=== PATIENT | male | born 1960 | race African-American/Black ===

== ENCOUNTER → 2020-12-07 11:07 | Outpatient (BNVA) | payer OTHER, SELFPAY | PROVIDERS: PCP Physician Assistant; Visit Provider Nurse Practitioner Family | DX: I21.4 Non-ST elevation (NSTEMI) myocardial infarction (principal); I25.10 Atherosclerotic heart disease of native coronary artery without angina pectoris; E11.9 Type 2 diabetes mellitus without complications; E78.5 Hyperlipidemia, unspecified; Z98.890 Other specified postprocedural states | CPT/HCPCS: 99212 ==

== ENCOUNTER → 2021-02-19 07:49 | Outpatient (REF) | payer OTHER, SELFPAY ==
--- NOTE | 2021-02-19 07:53 | CA_ITS ---
Transthoracic Echocardiogram Patient (Last, First, Middle): Pérez Yang, Gender: Male Date of : 1960 Age: 60 Procedure Date: 02/19/2021 Procedure Type: Transthoracic Echocardiogram Location: OP Height: 165.1 cm Weight: 111.13 kg BSA: 2.16 m2 Heart Rate: bpm BP: 120 / 66 mmHg Risk Engineer: MAYA Referring MD: Soni Grigsby [employer] Symptoms: Z98.890 - Other specified postprocedural states Study Quality: Fair ECG Rhythm: Sinus Conclusions: - The left ventricular systolic function is normal. The visually estimated ejection fraction is between 60-65%. - Possible mild hypokinesis in basal inferior wall. - No obvious valvular pathology seen on this study. Findings Left Ventricle Normal left ventricular cavity size. There is mildly increased left ventricular wall thickness. The left ventricular systolic function is normal. The visually estimated ejection fraction is between 60-65%. Diastolic function is normal for age. Possible mild hypokinesis in basal inferior wall. Right Ventricle Normal right ventricular cavity size. There is low normal right ventricular systolic function. Atria Both atria are normal in size. Aortic Valve There is a normal trileaflet aortic valve. There is no aortic valve stenosis. There is no aortic valve regurgitation. Mitral Valve The mitral valve appears normal. There is trace mitral valve regurgitation. There is no mitral valve stenosis. Pulmonic Valve The pulmonic valve was not well visualized. Tricuspid Valve Normal tricuspid valve structure. There is trace tricuspid valve regurgitation. The pulmonary artery systolic pressure is normal. Great Vessels The aortic annulus, sinuses of valsalva, asc aorta, and aortic arch are normal in size. Venous The inferior vena cava is normal in size and collapses greater than 50% with inspiration. Pericardium/Pleural There is no evidence of pericardial effusion. Prior Study Comparison No prior study available for comparison. Recommendations, Care & Conclusions No obvious valvular pathology seen on this study. Measurements 2D Linear Measurements RVIDd: 2.77 RVIDd Index: 1.28 IVSd: 1.11 0.6-0.9/0.6-1.0 cm LVIDd: 4.71 3.9-5.3/4.2-5.9 cm LVIDd Index: 2.18 2.4-3.2/2.2-3.1 cm/m2 LVIDs: 3.28 2.0-3.6 cm LVPWd: 1.42 0.7-1.1 cm Ao Root: 3.40 2.1-3.5 cm LA Diam: 3.60 2.7-3.8/3.0-4.0 cm LAIDs Index: 1.67 1.5-2.3 cm/m2 LV Mass: 286.02 67-162/88-224 g LV Mass Index: 132.42 43-95/49-115 g/m2 LVOT Diam: 2.10 3.0+(-)1.3 cm 2D Systolic Function EF 4C: 53.50 >55% EF 2C: 68.40 >55% EF BiP: 60.20 >55% Mitral Valve MV Pk E: 0.79 MV PK A: 0.36 MV Decel Time: 225.00 E/A: 2.20 E'Lateral: 7.51 E'Medial: 7.72 E/E' Med: 10.20 E/E' Lat: 10.50 Aortic Valve AoV Pk Emmett: 1.22 AoV Mn Emmett: 0.91 AoV VTI: 0.29 AoV Pk Grad: 6.00 Aov Mn Grad: 4.00 DEJAH Cont.VTI: 2.24 LVOT LVOT Pk Emmett: 0.83 LVOT Mn Emmett: 0.63 LVOT VTI: 0.19 LVOT Pk Grad: 3.00 LVOT Mn Grad: 2.00 LVOT Diam: 2.10 LVOT Area: 3.46 Diastolic Function MV Pk E: 0.79 MV Pk A: 0.36 E/A: 2.20 E'Medial: 7.72 E/E' Med: 10.20 E' Laterial: 7.51 E/E' Lat: 10.50 Tricuspid Valve TR Pk Emmett: 2.37 TR Pk Grad: 22.00 RA Press: 3.00 RVSP: 25.00 Great Vessels Aorta Ao Root-2D: 3.40 2.0-3.7 cm Ao Asc: 3.10 2.1-3.4 cm Ao Arch: 3.10 Updated in Other Vendor System with Status of Final Chito Catalan MD electronically signed on 02/20/2021 3:14:51 PM with status of Final
== END ==
LOC: HO.CARD 07:49
PROVIDERS: PCP Physician Assistant; Visit Provider Nurse Practitioner Family
DX: I21.4 Non-ST elevation (NSTEMI) myocardial infarction (principal); I25.10 Atherosclerotic heart disease of native coronary artery without angina pectoris; Z98.890 Other specified postprocedural states
CPT/HCPCS: 93306

== ENCOUNTER 2025-08-21 15:21 | Emergency (ER) | payer OTHER, SELFPAY ==
--- NOTE | ~2025-08-21 | XR_ITS ---
EXAMINATION: XR CHEST CLINICAL INFORMATION: CP COMPARISON: None available. TECHNIQUE: PA and lateral views. FINDINGS: No consolidation, pleural effusion or pneumothorax. Cardiomediastinal silhouette size is normal. Multilevel thoracolumbar spondylosis. Patient's large body habitus. XR/XR chest 2V IMPRESSION: No acute airspace disease. Electronically signed by: Zac Van MD 08/21/2025 04:10 PM EST
--- NOTE | 2025-08-21 15:27 | ECG_ITS ---
Test Reason : CP Blood Pressure : */* mmHG Vent. Rate : 77 BPM Atrial Rate : 77 BPM P-R Int : 150 ms QRS Dur : 70 ms QT Int : 350 ms P-R-T Axes : 58 -26 50 degrees QTcB Int : 396 ms Normal sinus rhythm Normal ECG No previous ECGs available Referred By: Arin Cobb Electronically Signed By: Issac Lenz
[2025-08-21 15:36] VITALS: BP 158/70; PULSE 82; RESP 18; TEMP 36.4; O2SAT 96; BMI 39.8
--- NOTE | 2025-08-21 15:36 | ED.CHESTPAIN ---
HPI - Chest Pain General Chief Complaint: Chest Pain Stated Complaint: CP Time Seen by Provider: 08/21/25 20:29 Source: patient Mode of arrival: ambulatory Limitations: no limitations History of Present Illness ED Provider: DR. Calvert HPI narrative: 65-year-old male history of CAD s/p PCI in 2020 came in for evaluation of mid chest pain started around 16:00 while he was talking to his neighbor, is concern of coronary artery disease. History of HTN, DM, HLD, CAD, active smoking. Patient declined any recent travel, no prolonged immobilization, no lower extremity swelling or tenderness, no history of PE or DVT. Related Data Home Medications ?Medication ?Instructions ?Recorded ?Confirmed aspirin 81 mg tablet,delayed mg PO 12/07/20 12/07/20 release atorvastatin 80 mg tablet 80 mg PO DAILY 12/07/20 12/07/20 carvedilol 3.125 mg tablet 3.125 mg PO BID 12/07/20 12/07/20 lisinopril 5 mg tablet 5 mg PO DAILY 12/07/20 12/07/20 metformin 750 mg tablet,extended 750 mg PO DAILY 12/07/20 12/07/20 release 24 hr nicotine 21 mg/24 hr daily 1 patch topical DAILY 12/07/20 12/07/20 transdermal patch Previous Rx's ?Medication ?Instructions ?Recorded ticagrelor 90 mg tablet 90 mg PO BID 90 days #180 tabs 02/26/21 Allergies Allergy/AdvReac Type Severity Reaction Status Date / Time No Known Allergies Allergy Verified 08/21/25 15:38 Review of Systems Review of Systems: All other systems are reviewed and are negative Constitutional: Reports as per HPI and Reports no additional constitutional complaints Eyes: Reports as per HPI and Reports no additional eye complaints Reports system reviewed and no additional complaints, except as documented Cardiovascular: Reports as per HPI and Reports no additional cardiovascular complaints Respiratory: Reports as per HPI and Reports no additional respiratory complaints Gastrointestinal: Reports as per HPI and Reports no additional gastrointestinal complaints Genitourinary: Reports no additional female genitourinary complaints Musculoskeletal: Reports no additional musculoskeletal complaints Skin/Breast: Reports system reviewed and no additional complaints, except as docu Psychiatric: Reports no additional psychiatric complaints Endocrine: Reports no additional endocrine complaints Hematologic/Lymphatic: Reports no additional hematologic/lymphatic complaints Allergic/Immunologic: Reports no additional allergic/immunologic complaints Reports system reviewed and no additional complaints, except as documented and Reports Abnormal speech present [facility] Past Medical History Medical History Smoking HLD (hyperlipidemia) Diabetes NSTEMI (non-ST elevated myocardial infarction) CAD (coronary artery disease) Surgical History S/P cardiac cath Social History Social History Advance Directives: No Advance Directives Information Provided: Yes Physical Exam Vital Signs: Vital Signs: Last Vital Signs Temp 97.6 F 08/21/25 15:36 Pulse 82 08/21/25 15:36 Resp 18 08/21/25 15:36 BP 158/70 H 08/21/25 15:36 Pulse Ox 96 08/21/25 15:36 O2 Del Method Room Air 08/21/25 15:36 BMI result Body Mass Index 39.8 Vital signs have been reviewed and appear to be correct. Blood pressure elevated. Heart rate normal. Respiratory rate normal. Temperature normal. Oxygen saturation normal. Appearance: Alert. Oriented X3. No acute distress. Head: Normal external exam. Normocephalic. Atraumatic. No Schaefer signs noted. No raccoon eyes noted Eyes: PERRLA. EOMI. Conjunctiva and sclera normal. Eyelids normal. ENT: TM's Normal. Pharynx normal. Uvula midline. Moist mucous membranes. No trismus noted. No drooling noted. No muffled voice noted. Neck: Normal inspection. Neck supple. FROM. No adenopathy. Thyroid Normal. No meningeal signs. No neck mass noted. CVS: Normal heart rate and rhythm. Heart sound normal. No murmurs noted. Pulses normal throughout. Respiratory: No respiratory distress. Painless inspiration. Breath sounds normal. No wheezes/rales/rhonchi noted. Chest nontender. No accessory muscle usage noted or decreased air movement noted. Abdomen: Soft and nontender. Bowel sounds normal in all 4 quadrants. No distention noted. No organomegaly noted. No visible injury noted. Back: No CVA tenderness. Full range of motion noted. Skin: Skin warm and dry. Normal skin color. Normal skin turgor. No rashes/lesions/lacerations noted. Extremities: No lower extremity edema. Extremities exhibit normal range of motion. Extremities nontender. Neuro: Oriented X 3. Cranial nerve exam: II-XII are grossly intact No motor deficit. No sensory deficit. Reflexes normal. Course Course Course Narrative: This is an RME: Additional HPI, ROS, PE not included below will be deferred to primary provider. RME assessment and note performed by: Arin Cobb PA-C This is a [id number]-male, hx of HLD, NSTEMI s/p cadiac cath with stenting in 2020, HLD, diabetes, who presents to the ER with a complaint of midsternal chest pain x several hours. Noticed pain suddenly, sharp/pressure started this afternoon. Plan: Labs, EKG, CXR, further ER eval needed Reevaluation(s) Reevaluation #1: Noncardiac chest pain, troponin is negative x2, no risk for pulmonary embolism, now is chest pain-free. Will reassure, instruct to follow-up with PCP. Time: 20:40 Medical Decision Making Differential Diagnosis Differential Diagnoses: The differential diagnosis associated with the presentation includes (CAD, ACS, pneumonia, pneumothorax, pleural effusion, pulmonary embolism, electrolyte derangement, myofascial muscle pain, costochondritis.) Admission/Observation Consideration of admission/observation: Escalation of care including admission/observation considered Lab Data MDM Lab Attestation statement: I reviewed the patient's lab results. 08/21/25 16:58 08/21/25 16:59 Labs: Lab Results 08/21/25 08/21/25 08/21/25 Range/Units 16:58 16:59 20:02 WBC 9.0 (4.8-10.8) X10*3/uL RBC 5.14 (4.60-5.80) X10*6/uL Hgb 14.5 (14.0-18.0) g/dl Hct 45.1 (42.0-52.0) % MCV 87.7 (80.0-98.0) fL MCH 28.2 (27.0-33.0) pg MCHC 32.2 (31.0-36.0) g/dl RDW 13.3 (11.0-16.0) % Plt Count 218 (160-400) X10*3/uL MPV 9.2 L (9.4-12.4) fL Immature Gran % (Auto) 0.2 (0.0-0.4) % Neut % (Auto) 55.3 (45-73) % Lymph % (Auto) 30.8 (20-40) % Laurens % (Auto) 7.7 (2-11) % Eos % (Auto) 5.1 H (0-4) % Baso % (Auto) 0.9 (0-2) % Lymph # (Auto) 2.8 (1.2-4.9) X10*3/uL Laurens # (Auto) 0.7 (0.1-1.2) X10*3/uL Eos # (Auto) 0.5 H (0.0-0.4) X10*3/uL Baso # (Auto) 0.1 (0.0-0.2) X10*3/uL Abs Immat Gran (auto) 0.02 (0.00-0.03) X10*3/uL Absolute Neuts (auto) 5.0 (2.0-8.3) x10*3/uL Absolute Nucleated RBC 0.000 (0.0-0.012) X10*3/uL Nucleated RBC % (auto) 0.0 (0.0-0.2) /100WBC Sodium 136 (135-145) mmol/L Potassium 4.5 (3.3-5.1) mmol/L Chloride 105 (96-108) mmol/L Carbon Dioxide 26 (22-29) mmol/L Anion Gap 10 L (12-20) BUN 13 (9-16) mg/dL Creatinine 1.12 (0.5-1.4) mg/dL Estim Creat Clear Calc 76.6 Estimated GFR > 60 Random Glucose 82 (60-115) mg/dL Calcium 9.0 (8.4-10.2) mg/dL Magnesium 2.3 (1.6-2.6) mg/dL Total Bilirubin 0.3 (0.0-1.0) mg/dL Direct Bilirubin 0.1 (0.0-0.5) mg/dL AST 26 (5-37) U/L ALT 28 (0-40) U/L Alkaline Phosphatase 89 (39-117) U/L Troponin I High Sens < 2.7 < 2.7 (<3.5-35.0) ng/L Total Protein 7.1 (6.5-8.0) g/dL Albumin 4.2 (3.5-5.0) g/dL Influenza Type A (PCR) NEGATIVE (Negative) Influenza Type B (PCR) NEGATIVE (Negative) RSV RNA Qual (PCR) NEGATIVE (Negative) SARS-CoV-2 RNA (RT-PCR) NEGATIVE (Negative) Independent Interpretation I performed an independent interpretation of an: Plain X-Ray (Chest: No acute airspace disease.) Radiology Impression Discussion of test interpretation with radiology: I have reviewed the radiologist's reading. Discharge Plan Discharge Clinical Impression: Atypical chest pain Patient Disposition: Home, Self-Care Instructions: Chest Pain (ED) Prescriptions: No Action ticagrelor 90 mg tablet 90 mg PO BID 90 Days Qty: 180 2RF lisinopril 5 mg tablet 5 mg PO DAILY carvedilol 3.125 mg tablet 3.125 mg PO BID aspirin 81 mg tablet,delayed release (DR/EC) PO atorvastatin 80 mg tablet 80 mg PO DAILY nicotine 21 mg/24 hr patch 24 hour 1 patch topical DAILY metformin 750 mg tablet extended release 24 hr 750 mg PO DAILY Referrals: Oh Cisneros PA [Primary Care Provider, Internal Medicine] Print Language: Azerbaijani
[2025-08-21 17:03] LABS: MANUAL DIFF FLAG NO
[2025-08-21 17:04] LABS: Hematocrit 45.1 % (42.0-52.0); Hemoglobin 14.5 g/dl (14.0-18.0); Imm Gran Abs Auto 0.02 X10*3/uL (0.00-0.03); Imm Gran Pct Auto 0.2 % (0.0-0.4); Lymphocytes Absolute Auto 2.8 X10*3/uL (1.2-4.9); Mean Corpuscular HGB Conc 32.2 g/dl (31.0-36.0); Mean Corpuscular Hemoglobin 28.2 pg (27.0-33.0); Mean Corpuscular Volume 87.7 fL (80.0-98.0); NRBC Abs Auto 0.000 X10*3/uL (0.0-0.012); NRBC Pct Auto 0.0 /100WBC (0.0-0.2); Platelet Count 218 X10*3/uL (160-400); Red Blood Count 5.14 X10*6/uL (4.60-5.80); White Blood Count 9.0 X10*3/uL (4.8-10.8)
[2025-08-21 17:20] LABS: Alanine Aminotransferase 28 U/L (0-40); Albumin Level 4.2 g/dL (3.5-5.0); Alkaline Phosphatase 89 U/L (39-117); Anion Gap 10 (12-20); Aspartate Amino Transferase 26 U/L (5-37); Blood Urea Nitrogen 13 mg/dL (9-16); Calcium 9.0 mg/dL (8.4-10.2); Carbon Dioxide 26 mmol/L (22-29); Chloride 105 mmol/L (96-108); Creatinine Clr Calc Pharmacy 76.6; Estimated Glomerular Filt Rate > 60; Magnesium 2.3 mg/dL (1.6-2.6); Potassium 4.5 mmol/L (3.3-5.1); Sodium 136 mmol/L (135-145); Total Protein 7.1 g/dL (6.5-8.0)
[2025-08-21 17:28] LABS: Troponin-I High Sensitivity < 2.7 ng/L (<3.5-35.0)
[2025-08-21 17:40] LABS: Resp Syncy Virus RNA Qual PCR NEGATIVE (Negative); SARS COV2 PCR INHOUSE NEGATIVE (Negative)
--- OUTSIDE RECORDS SUMMARY | 2025-08-21 20:22 | XMS_ITS | Clinical Summary ---
Author Organization [facility] Address [address] [address] Phone Care Team Providers Care Tc Operator Name Role Phone Oh Esposito Primary Care Provider [phone] Allergies Active Allergy Reactions Criticality Noted Date Comments Tomato 11/12/2020 Medications albuterol 90 mcg/actuation inhaler Inhale 2 puffs into the lungs 2 (two) times a day as needed for wheezing. Active atorvastatin (LIPITOR) 40 MG tablet Take 40 mg by mouth daily. Active capsaicin (CAPZASIN-HP) 0.1 % Crea Apply 1 application topically 3 (three) times a day. Active metFORMIN (GLUCOPHAGE-XR) 750 MG 24 hr tablet Take 750 mg by mouth daily with dinner. Active nicotine (NICODERM CQ) 21 mg/[address] 1 patch onto the skin daily. Active nicotine polacrilex (NICORETTE) [address] 4 mg inside cheek every 4 (four) hours as needed for smoking cessation. Active diazePAM (VALIUM) 5 MG tablet Take 1 tablet (5 mg total) by mouth every 6 (six) hours as needed for anxiety. 12 tablet Active Social History Tobacco Use Types Packs/Day Years Used Date Smoking Tobacco: Some Days Smokeless Tobacco: Current Alcohol Use Standard Drinks/Week Comments Not Currently 1 (1 standard drink = 0.6 oz pur e alcohol) Education Answer Date Recorded Are you interested in more education? Not on david e 12/30/2022 Are you concerned about learning? Not on file 12/30/2022 No 12/30/2022 No 12/30/2022 Digital Access Answer Date Recorded No 01/28/2023 No 01/28/2023 Reliable internet access at home? Not on file 01/28/2023 Device with a working camera? Not on file Intimate Partner Violence Answer Date R ecorded Are you denied basic needs s uch as food, clothing, or medical care? No 05/05/2024 In the past 12 months have y ou been in a relationship with a person who hurts, threatens, or tries to control you? No 05/05/2024 Are you denied basic needs s uch as food, clothing, or medical care? No 05/05/2024 In the past 12 months have y ou been in a relationship with a person who hurts, threatens, or tries to control you? No 05/05/2024 Sex and Gender Information Value Date Recorded Sex Assigned at Not on file Legal Sex Male 9:45 PM EDT Gender Identity Male 11/12/2020 3:35 PM EST Sexual Orientation Not on file Last Filed Vital Signs Vital Sign Reading Time Taken Comments Blood Pressure 120/80 05/05/2024 3:23 PM EDT Pulse 84 05/05/2024 3:23 PM EDT Temperature 36.4 C (97.5 F) 05/05/2024 3:23 PM EDT Respiratory Rate 16 05/05/2024 3:23 PM EDT Oxygen Saturation 98% 05/05/2024 3:23 PM EDT Inhaled Oxygen Concentration - - Weight 116.6 kg (257 lb) 05/05/2024 11:49 AM EDT Height 165.1 cm (5' 5 ) 05/05/2024 11:49 AM EDT Body Mass Index 42.77 05/05/2024 11:49 AM EDT Plan of Treatment Health Maintenance Due Date Last Done Comments Adult Td,Tdap Booster 1960 LIPID PANEL 1960 DEPRESSION SCREENING 1974 SMOKING Hx and SMOKELESS TOBACCO SCREENING 1975 HEPATITIS C SCREENING 1980 HIV ONE-TIME SCREENING (18-65 YEARS) 1980 PNEUMOCOCCAL VACCINES (50+ years) (1 of 2 - PCV) 1981 COLOGUARD 2007 COLONOSCOPY 2007 COLORECTAL CANCER SCREENING 2007 FIT TEST 2007 FOBT 2007 SIGMOIDOSCOPY 2007 VIRTUAL COLONOSCOPY 2007 RSV VACCINE (1 - Risk 50-74 years 1-dose series) 2012 ZOSTER VACCINES (1 of 2) 2012 CREATININE LEVEL 11/12/2021 11/12/2020 SCREENING FOR DIABETES 11/13/2023 11/12/2020 INFLUENZA VACCINE (#1) 2025 , 08/12/2019, 11/15/2018, Additional history exists COVID-19 VACCINE ( season) 2025 12/01/2020 HEPATITIS A VACCINES Aged Out No long er eligible based on patient's age to complete this topic HIB VACCINES Aged Out No longer eligi ble based on patient's age to complete this topic MENINGOCOCCAL VACCINES (ACWY) Aged Out No longer eligible based on patient's age to complete this topic MENINGOCOCCAL VACCINES (B) Aged Out N o longer eligible based on patient's age to complete this topic Medical Devices Not on file Procedures Procedure Name Priority Date/Time Associated Diagnosis Comments BASIC METABOLIC PANEL (BMP) STAT 11/12/2020 4:12 PM EST from Last 3 Months or Most Recently Relevant to Health Maintenance Results * Basic metabolic panel (11/12/2020 4:12 PM EST) SODIUM 138 133 - 146 mmol/L [facility] CHLORIDE 103 96 - 108 mmol/L [facility] POTASSIUM 4.5 3.3 - 5.1 mmol/L [facility] CO2 26 21 - 35 mmol/L [facility] BUN 8 6 - 19 mg/dL [facility] CREATININE 0.90 0.5 - 1.5 mg/dL [facility] GLUCOSE 83 70 - 99 mg/dL [facility] CALCIUM 9.6 8.4 - 10.3 mg/dL [facility] EGFR 94 >59 mL/min/1.7 3m2 [facility] Comment:Estimated glomerular filtration rate calculated using the CKD-EPI equation. ANION GAP 14 10 - 20 mmol/L [facility] Blood 11/12/2020 4:12 PM EST 11/12/2020 4:22 PM EST us Williams Mckenzie MD LAB BLOOD BKR ORDERABLES F inal Result [facility] [address] [place] [address] from Last 3 Months or Most Recently Relevant [place] [address] Care Teams Tc Operator Relationship Specialty Start Date End Date Oh Esposito [address] [place] [address] [place] [address] PCP - General 11/12/20 Additional Source Comments The information contained in this document represents components of the legal health record. It is not the complete legal health record.[facility]
[2025-08-21 20:27] LABS: Troponin-I High Sensitivity < 2.7 ng/L (<3.5-35.0)
[2025-08-21 20:39] VITALS: BP 148/89; PULSE 71; RESP 18; TEMP 36.6; O2SAT 98
== END 2025-08-21 22:35 | disposition home or self-care (01) ==
PROVIDERS: Physician Assistant Medical; Emergency Provider Emergency Medicine; PCP Physician Assistant
DX: R07.89 Other chest pain (principal); E11.9 Type 2 diabetes mellitus without complications; I10 Essential (primary) hypertension; E78.5 Hyperlipidemia, unspecified; F17.200 Nicotine dependence, unspecified, uncomplicated; Z79.82 Long term (current) use of aspirin; Z79.02 Long term (current) use of antithrombotics/antiplatelets; Z79.84 Long term (current) use of oral hypoglycemic drugs; Z03.818 Encounter for observation for suspected exposure to other biological agents ruled out
CPT/HCPCS: 36415; 71046; 80048; 80076; 83735; 84484; 85025; 87637; 93005; 99283

== ENCOUNTER → 2025-08-21 15:27 | Outpatient (BNV) | payer OTHER, SELFPAY | PROVIDERS: Emergency Provider Emergency Medicine; PCP Physician Assistant; Visit Provider Internal Medicine Cardiovascular Disease | DX: R07.9 Chest pain, unspecified (principal) | CPT/HCPCS: 93010 ==

== ENCOUNTER → 2025-08-21 15:39 | Outpatient (BNV) | payer OTHER, SELFPAY | PROVIDERS: PCP Physician Assistant; Visit Provider Radiology Diagnostic Radiology | DX: R07.9 Chest pain, unspecified (principal) | CPT/HCPCS: 71046 ==